=== PATIENT | male | born 1990 | race Caucasian/White ===

== ENCOUNTER 2022-02-27 15:56 | Emergency (ER) | payer BC ==
[2022-02-27] MEDS ORDERED: predniSONE 20 MG Tab PO ONE (16:11)
[2022-02-27] MEDS ORDERED: Orphenadrine 60 MG/2 ML Inj IM ONE (16:11)
[2022-02-27] MEDS ORDERED: Ketorolac 60 MG/2 ML SDV IM ONE (16:11)
== END 2022-02-27 16:50 | disposition home or self-care (01) ==
LOC: MW.ED 15:56
DX: M54.41 Lumbago with sciatica, right side (principal)
CPT/HCPCS: 96372; 99283; A9270; J1885; J2360

== ENCOUNTER 2022-11-14 19:54 | Emergency (ER) | payer BC ==
[2022-11-14] MEDS ORDERED: Lidocaine 5% 700 MG Patch TRDERM ONE (21:45)
[2022-11-14] MEDS ORDERED: Cyclobenzaprine 10 MG Tab PO ONE (22:51)
[2022-11-14] MEDS ORDERED: Ketorolac 60 MG/2 ML SDV IM ONE (22:51)
== END 2022-11-14 23:21 | disposition home or self-care (01) ==
LOC: MW.ED 19:54
DX: M54.16 Radiculopathy, lumbar region (principal); M54.41 Lumbago with sciatica, right side; F17.210 Nicotine dependence, cigarettes, uncomplicated
CPT/HCPCS: 96372; 99283; A9270; J1885

== ENCOUNTER 2023-09-25 14:20 | Emergency (ER) | payer BC ==
[2023-09-25] MEDS: Ketorolac 30 MG/ML SDV IM STA (15:07)
[2023-09-25] MEDS: Cyclobenzaprine 10 MG Tab PO STA (18:22)
== END 2023-09-25 18:53 | disposition home or self-care (01) ==
LOC: MW.ED 14:20
DX: S39.012A Strain of muscle, fascia and tendon of lower back, initial encounter (principal); X50.1XXA Overexertion from prolonged static or awkward postures, initial encounter
CPT/HCPCS: 72128; 72131; 96372; 96374; 99284; A9270; J1885; J3360